=== PATIENT | female | born 2000 | race African-American/Black ===

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

== ENCOUNTER 2023-12-06 05:08 | Emergency (ER) | payer OTHER ==
[2023-12-06 05:17] VITALS: BP 100/68; PULSE 79; RESP 16; TEMP 98.7; BMI 23.9
[2023-12-06] MEDS ORDERED: ACETAMINOPHEN 325 MG TABLET (FP) ONE (05:54)
[2023-12-06] MEDS: ACETAMINOPHEN 325 MG TABLET (FP) PO ONE (06:00)
[2023-12-06 06:20] LABS: HCG,QUALITATIVE URINE Negative
[2023-12-06 06:21] LABS: EPI CELLS 6 /uL (0-25.1); HYALINE CASTS 1 /uL (0-3.1); URINE APPEARANCE CLEAR; URINE BACTERIA 96 /uL (0-1359); URINE BILIRUBIN NEGATIVE (NEGATIVE); URINE COLOR YELLOW; URINE GLUCOSE (UA) NEGATIVE (NEGATIVE); URINE KETONE NEGATIVE (NEGATIVE); URINE LEUK ESTERASE NEGATIVE (NEGATIVE); URINE NITRITE NEGATIVE (NEGATIVE); URINE PROTEIN NEGATIVE (NEGATIVE); URINE RBC 87 /uL (0-23.9); URINE WBC 12 /uL (0-25.8)
[2023-12-06] MEDS ORDERED: ONDANSETRON *ODT* 4 MG TABLET ONE (06:29)
[2023-12-06] MEDS: ONDANSETRON 4 MG TABLET PO ONE (06:31)
[2023-12-06] MEDS ORDERED: METOCLOPRAMIDE HCL INJECTION 10 MG/2 ML VIAL IVPB ONE (08:01)
[2023-12-06] MEDS ORDERED: METOCLOPRAMIDE HCL INJECTION 10 MG/2 ML VIAL ONE (08:28)
[2023-12-06] MEDS ORDERED: PANTOPRAZOLE 40 MG TABLET PO ONE (08:44)
[2023-12-06 08:55] LABS: BASO % 0.5 % (0-2.0); HEMATOCRIT 41.1 % (32.4-45.2); HEMOGLOBIN 13.8 GM/dL (10.7-15.3); LYMPH % 32.1 % (8-40); MCH 30.8 pg (25.7-33.7); MCHC 33.6 g/dl (32.0-36.0); MEAN CELL VOLUME 91.6 fl (80-96); MEAN PLT VOLUME 7.1 fl (7.5-11.1); MONO % 7.1 % (3.8-10.2); NEUT % 60.3 % (42.8-82.8); PLATELET COUNT 290 10^3/uL (134-434); RBC 4.49 M/mm3 (3.60-5.2); RDW 12.2 % (11.6-15.6); WHITE BLOOD COUNT 6.3 K/mm3 (4.0-10.0)
[2023-12-06 08:57] LABS: INR 1.08 (0.83-1.09); PROTHROMBIN TIME (PATIENT) 12.2 SEC (9.7-13.0)
[2023-12-06 08:59] LABS: ACTIVATED PTT 39.6 SECONDS (25.2-36.5)
[2023-12-06 09:25] LABS: ALBUMIN 4.1 g/dl (3.4-5.0); BLOOD UREA NITROGEN 4.3 mg/dL (7-18); CALCIUM 9.4 mg/dL (8.5-10.1)
[2023-12-06 09:27] LABS: CREATININE 0.7 mg/dL (0.55-1.3)
[2023-12-06 09:29] LABS: BILIRUBIN,TOTAL 0.4 mg/dL (0.2-1); TOT PROT 7.9 g/dl (6.4-8.2)
== END 2023-12-06 09:21 | disposition left against medical advice (07) ==
LOC: JER 05:08
DX: R11.2 Nausea with vomiting, unspecified (principal); R10.30 Lower abdominal pain, unspecified; R19.7 Diarrhea, unspecified; Z20.822 Contact with and (suspected) exposure to COVID-19
CPT/HCPCS: 0241U-QW; 36415; 80053; 81003; 84703; 85025; 85610; 85730; 86850; 86900; 86901; 99283-25